=== PATIENT | male | born 1985 | race Two or more races ===

== ENCOUNTER 2023-07-17 23:52 | Emergency (ER) | payer SELFPAY ==
[~2023-07-17] VITALS: Ht 182.9 cm; Wt 88.5 kg
[2023-07-18 02:00] VITALS: TEMP 98.3
[2023-07-18] MEDS ORDERED: hydrOXYzine 50 MG TAB PO ONE (02:05)
[2023-07-18] MEDS ORDERED: HYDR-3363 PO (02:08)
[2023-07-18 02:45] VITALS: BP 142/89; O2SAT 98
== END 2023-07-18 03:17 | disposition home or self-care (01) ==
LOC: M ED 23:52
DX: F41.9 Anxiety disorder, unspecified (principal)

== ENCOUNTER 2023-07-27 04:47 | Emergency (ER) | payer MEDICAID ==
[~2023-07-27] VITALS: Ht 182.9 cm; Wt 86.4 kg
[~2023-07-27 04:47] MED LIST: HYDR-3363 PO
[2023-07-27 05:02] VITALS: BP 156/100; TEMP 97.9; O2SAT 100
[2023-07-27 05:27] LABS: HEMATOCRIT 48.4 % (42.0-52.0); HEMOGLOBIN 16.9 g/dl (13.5-17.5); MEAN CORPUSCULAR HEMOGLOBIN 32.2 pg (27.0-33.0); MEAN CORPUSCULAR HGB CONC 34.9 g/dl (32.0-36.5); MEAN CORPUSCULAR VOLUME 92.2 fl (80.0-96.0); PLATELET COUNT, AUTOMATED 180 10^3/uL (150-450); RED BLOOD COUNT 5.25 10^6/uL (4.30-6.10); WHITE BLOOD COUNT 7.7 10^3/uL (4.0-10.0)
[2023-07-27 05:46] LABS: AMPHETAMINES LEVEL URINE NEGATIVE (NEGATIVE); BARBITURATES URINE NEGATIVE (NEGATIVE); BENZODIAZEPINES URINE NEGATIVE (NEGATIVE)
[2023-07-27 05:47] LABS: CANNABINOIDS URINE NEGATIVE (NEGATIVE); COCAINE METABOLITE URINE NEGATIVE (NEGATIVE); METHADONE URINE NEGATIVE (NEGATIVE); OPIATES URINE NEGATIVE (NEGATIVE); PHENCYCLIDINE URINE NEGATIVE (NEGATIVE)
[2023-07-27 05:51] LABS: ALBUMIN 4.4 G/DL (3.2-5.2); ALKALINE PHOSPHATASE 92 U/L (46-116); ALT/SGPT 24 U/L (7.0-40); AST/SGOT 16 U/L (<34); BILIRUBIN,DIRECT < 0.1 MG/DL (<0.4); BILIRUBIN,TOTAL 0.2 MG/DL (0.3-1.2); BLOOD UREA NITROGEN 7 MG/DL (9-23); CALCIUM LEVEL 9.1 MG/DL (8.5-10.1); CARBON DIOXIDE LEVEL 23 MMOL/L (20-31); CHLORIDE LEVEL 107 MMOL/L (98-107); CREATININE FOR GFR 0.72 MG/DL (0.70-1.30); GLOMERULAR FILTRATION RATE > 60.0 (>60); GLUCOSE, FASTING 105 MG/DL (60-100); POTASSIUM SERUM 4.7 MMOL/L (3.5-5.1); SALICYLATE LEVEL < 3.0 MG/DL (<30); SODIUM LEVEL 143 MMOL/L (136-145); TOTAL PROTEIN 7.7 G/DL (5.7-8.2)
[2023-07-27 05:53] LABS: THYROID STIMULATING HORMONE 1.586 uIU/ML (0.55-4.78)
[2023-07-27 06:21] LABS: ETHYL ALCOHOL (ETHANOL) 0.301 % (0.000-0.010)
[2023-07-27] MEDS ORDERED: MED REC IN PROGRESS XX SCH (08:20)
== END 2023-07-27 10:10 | disposition home or self-care (01) ==
LOC: M ED 04:47
DX: F10.929 Alcohol use, unspecified with intoxication, unspecified (principal)

== ENCOUNTER 2023-09-04 13:48 | Emergency (ER) | payer MEDICAID, OTHER ==
[~2023-09-04] VITALS: Ht 182.9 cm; Wt 90.5 kg
[2023-09-04 13:49] VITALS: BP 141/90; TEMP 96.4; O2SAT 100
[2023-09-04] MEDS ORDERED: ARIP10TA32 (13:55)
[2023-09-04] MEDS ORDERED: CLON-412 (13:55)
[2023-09-04] MEDS ORDERED: BUSP10TA (13:55)
[2023-09-04] MEDS ORDERED: MIRT1TAB (13:55)
[2023-09-04] MEDS ORDERED: VENL150C43 (13:55)
[2023-09-04 15:14] LABS: RSV AMPLIFICATION NEGATIVE (NEGATIVE)
[2023-09-04] MEDS ORDERED: DOXY-443 PO (16:40)
[2023-09-04] MEDS ORDERED: VENTAER INH (16:40)
== END 2023-09-04 16:57 | disposition home or self-care (01) ==
LOC: M ED 13:48
DX: J20.9 Acute bronchitis, unspecified (principal); J01.90 Acute sinusitis, unspecified

== ENCOUNTER 2023-10-06 21:56 | Emergency (ER) | payer OTHER ==
[~2023-10-06] VITALS: Ht 182.9 cm; Wt 93.4 kg
[~2023-10-06 21:56] MED LIST changes: +ARIP10TA32; +BUSP10TA; +CLON-412; +DOXY-443 PO; +MIRT1TAB; +VENL150C43; +VENTAER INH
[2023-10-06] MEDS ORDERED: SALI0.6530 NARES (23:27)
[2023-10-06 23:35] VITALS: BP 124/72; TEMP 98; O2SAT 99
== END 2023-10-06 23:37 | disposition home or self-care (01) ==
LOC: M ED 21:56
DX: U07.1 COVID-19 (principal); F41.9 Anxiety disorder, unspecified; F32.A Depression, unspecified; F43.10 Post-traumatic stress disorder, unspecified; F31.9 Bipolar disorder, unspecified; F17.210 Nicotine dependence, cigarettes, uncomplicated; Z79.51 Long term (current) use of inhaled steroids; Z79.899 Other long term (current) drug therapy

== ENCOUNTER 2023-12-15 01:16 | Emergency (ER) | payer OTHER ==
[~2023-12-15] VITALS: Ht 182.9 cm; Wt 98.2 kg
[~2023-12-15 01:16] MED LIST changes: +SODI88SP NARES
[2023-12-15 02:37] LABS: RSV AMPLIFICATION NEGATIVE (NEGATIVE)
[2023-12-15] MEDS ORDERED: AMIT10TA7 PO (03:21)
[2023-12-15] MEDS ORDERED: LAMO25TA57 PO (03:22)
[2023-12-15 03:39] LABS: BASO # 0.1 10^3/uL (0.0-0.2); BASO % 0.7 % (0.0-1.0); EOS # 0.2 10^3/uL (0.0-0.5); EOS % 2.2 % (0.0-3.0); HEMATOCRIT 44.8 % (42.0-52.0); HEMOGLOBIN 15.1 g/dl (13.5-17.5); LYMPH # 3.2 10^3/uL (1.5-5.0); LYMPH % 37.1 % (24.0-44.0); MEAN CORPUSCULAR HEMOGLOBIN 30.4 pg (27.0-33.0); MEAN CORPUSCULAR HGB CONC 33.7 g/dl (32.0-36.5); MEAN CORPUSCULAR VOLUME 90.3 fl (80.0-96.0); MONO # 0.6 10^3/uL (0.0-0.8); MONO % 6.8 % (2.0-8.0); NEUTROPHILS # 4.5 10^3/uL (1.5-8.5); PLATELET COUNT, AUTOMATED 188 10^3/uL (150-450); RED BLOOD COUNT 4.96 10^6/uL (4.30-6.10); WHITE BLOOD COUNT 8.6 10^3/uL (4.0-10.0)
[2023-12-15 03:47] LABS: INR 0.91
[2023-12-15 04:09] LABS: CK-MB VALUE MASS < 1.0 NG/ML (<3.6); LIPASE 33 U/L (12-53)
[2023-12-15 04:11] LABS: ALBUMIN 4.1 G/DL (3.2-5.2); ALKALINE PHOSPHATASE 91 U/L (46-116); ALT/SGPT 66 U/L (7.0-40); AST/SGOT 29 U/L (<34); BILIRUBIN,DIRECT 0.1 MG/DL (<0.4); BILIRUBIN,TOTAL 0.4 MG/DL (0.3-1.2); BLOOD UREA NITROGEN 9 MG/DL (9-23); CALCIUM LEVEL 9.2 MG/DL (8.5-10.1); CARBON DIOXIDE LEVEL 26 MMOL/L (20-31); CHLORIDE LEVEL 105 MMOL/L (98-107); CREATININE FOR GFR 0.74 MG/DL (0.70-1.30); GLOMERULAR FILTRATION RATE > 60.0 (>60); GLUCOSE, FASTING 86 MG/DL (60-100); SODIUM LEVEL 141 MMOL/L (136-145)
[2023-12-15 04:13] LABS: CPK CREATINE PHOSPHOKINASE 71 U/L (46-171)
[2023-12-15] MEDS: ACETAMINOPHEN TAB 650MG DOSE (2X325MG) PO ONE (07:54)
[2023-12-15] MEDS ORDERED: ISOVUE-370 76% 100ML VIAL As Ordered ONE (07:55)
[2023-12-15 08:25] LABS: CK-MB VALUE MASS < 1.0 NG/ML (<3.6)
[2023-12-15 08:30] LABS: CPK CREATINE PHOSPHOKINASE 69 U/L (46-171); MB/CK RELATIVE INDEX 1.44 (< OR =4)
[2023-12-15 11:30] VITALS: BP 134/76; O2SAT 98
[2023-12-15 11:53] VITALS: TEMP 98.3
== END 2023-12-15 11:53 | disposition home or self-care (01) ==
LOC: M ED 01:16
DX: R07.9 Chest pain, unspecified (principal); R94.31 Abnormal electrocardiogram [ECG] [EKG]; F32.A Depression, unspecified; F41.9 Anxiety disorder, unspecified; F17.290 Nicotine dependence, other tobacco product, uncomplicated; Z79.51 Long term (current) use of inhaled steroids; Z79.899 Other long term (current) drug therapy
CPT/HCPCS: 36415; 71045; 71275; 80053; 82248; 82550; 82553; 83690; 85025; 85610; 87631; 93005; 93041; 94760; 99285; Q9967

== ENCOUNTER 2023-12-29 20:05 | Emergency (ER) | payer OTHER ==
[~2023-12-29] VITALS: Ht 182.9 cm; Wt 98.6 kg
[~2023-12-29 20:05] MED LIST changes: +AMIT10TA7 PO; +LAMO25TA57 PO
[2023-12-29] MEDS: dexAMETHasone 20MG/5ML VIAL IV ONE (21:22)
[2023-12-29] MEDS: NS 1,000 ML IV ONE (21:23)
[2023-12-29 21:24] LABS: BASO # 0.1 10^3/uL (0.0-0.2); BASO % 0.7 % (0.0-1.0); EOS # 0.2 10^3/uL (0.0-0.5); EOS % 2.2 % (0.0-3.0); HEMATOCRIT 42.4 % (42.0-52.0); HEMOGLOBIN 14.8 g/dl (13.5-17.5); LYMPH # 2.7 10^3/uL (1.5-5.0); LYMPH % 36.1 % (24.0-44.0); MEAN CORPUSCULAR HEMOGLOBIN 30.6 pg (27.0-33.0); MEAN CORPUSCULAR HGB CONC 34.9 g/dl (32.0-36.5); MEAN CORPUSCULAR VOLUME 87.8 fl (80.0-96.0); MONO # 0.4 10^3/uL (0.0-0.8); MONO % 5.7 % (2.0-8.0); NEUTROPHILS # 4.1 10^3/uL (1.5-8.5); NEUTROPHILS % 55.2 % (36.0-66.0); PLATELET COUNT, AUTOMATED 164 10^3/uL (150-450); RED BLOOD COUNT 4.83 10^6/uL (4.30-6.10); WHITE BLOOD COUNT 7.4 10^3/uL (4.0-10.0)
[2023-12-29] MEDS: IPRATROPIUM 0.5MG/ALBUTEROL 2.5MG INH SOL UD 3ML (DUONEB) NEB ONE (21:24)
[2023-12-29 21:28] LABS: CK-MB VALUE MASS < 1.0 NG/ML (<3.6)
[2023-12-29 21:30] LABS: ALBUMIN 3.8 G/DL (3.2-5.2); ALKALINE PHOSPHATASE 87 U/L (46-116); ALT/SGPT 40 U/L (7.0-40); AST/SGOT 27 U/L (<34); BILIRUBIN,DIRECT < 0.1 MG/DL (<0.4); BILIRUBIN,TOTAL 0.4 MG/DL (0.3-1.2); BLOOD UREA NITROGEN 7 MG/DL (9-23); CARBON DIOXIDE LEVEL 25 MMOL/L (20-31); CHLORIDE LEVEL 104 MMOL/L (98-107); CREATININE FOR GFR 0.77 MG/DL (0.70-1.30); GLOMERULAR FILTRATION RATE > 60.0 (>60); GLUCOSE, FASTING 134 MG/DL (60-100); POTASSIUM SERUM 4.4 MMOL/L (3.5-5.1); SODIUM LEVEL 137 MMOL/L (136-145); TOTAL PROTEIN 6.6 G/DL (5.7-8.2)
[2023-12-29 21:32] LABS: THYROID STIMULATING HORMONE 1.952 uIU/ML (0.55-4.78)
[2023-12-29 21:36] LABS: PROCALCITONIN <0.04 ng/ml
[2023-12-29 21:39] LABS: CPK CREATINE PHOSPHOKINASE 70 U/L (46-171); MB/CK RELATIVE INDEX 1.42 (< OR =4)
[2023-12-29] MEDS ORDERED: ISOVUE-370 76% 100ML VIAL As Ordered ONE (22:17)
[2023-12-29 22:54] LABS: CK-MB VALUE MASS < 1.0 NG/ML (<3.6)
[2023-12-29 22:57] LABS: CPK CREATINE PHOSPHOKINASE 54 U/L (46-171); MB/CK RELATIVE INDEX 1.85 (< OR =4)
[2023-12-29] MEDS ORDERED: AZIT500T5 PO (23:54)
[2023-12-29] MEDS ORDERED: PRED20TA PO (23:54)
[2023-12-30] MEDS: AZITHROMYCIN 250MG TABLET PO ONE (00:19)
[2023-12-30 00:25] VITALS: BP 134/82; TEMP 98.2; O2SAT 100
== END 2023-12-30 00:28 | disposition home or self-care (01) ==
LOC: M ED 20:05
DX: J20.9 Acute bronchitis, unspecified (principal); F41.9 Anxiety disorder, unspecified; F32.A Depression, unspecified; F17.290 Nicotine dependence, other tobacco product, uncomplicated; Z79.51 Long term (current) use of inhaled steroids; Z79.899 Other long term (current) drug therapy; Z79.52 Long term (current) use of systemic steroids
CPT/HCPCS: 71045; 71275; 80048; 80076; 82550; 82553; 83880; 84145; 84436; 84443; 85025; 87486; 87581; 87633; 87798; 93005; 93041; 94640; 94760; 96361; 96374; 99283; 99285; J1100; Q9967